=== PATIENT | male | born 1940 | race Caucasian/White ===

== ENCOUNTER 2022-05-15 19:31 | Observation (INO) | payer MEDICARE ==
[~2022-05-15] VITALS: Ht 167.6 cm; Wt 63.1 kg
[2022-05-15 19:54] LABS: BASO % 0.4 % (0.0-2.0); EOS # 0.1 K/mm3 (0.0-0.7); EOS % 1.2 % (0.0-4.0); GRAN # 3.9 K/mm3 (1.4-6.5); GRAN % 77.6 % (42.2-75.2); LYMPH # 0.3 K/mm3 (1.2-3.4); MEAN CELL VOLUME 97 fl (80.0-100.0); MEAN CORPUSCULAR HEMOGLOBIN 33 pg (27-31); MEAN CORPUSCULAR HGB CONC 34 g/dl (33.0-37.0); MEAN PLATELET VOLUME 8.5 fl (7.4-10.4); MONO # 0.8 K/mm3 (0.1-0.6); MONO % 15.2 % (1.7-9.3); PLATELET COUNT 184 K/mm3 (130-400); RED BLOOD COUNT 3.92 M/mm3 (4.20-5.60); REDCELL DISTRIBUTION WIDTH-CV 12.7 % (11.5-14.5)
[2022-05-15 20:14] LABS: ALBUMIN 3.1 gm/dL (3.4-4.8); BILIRUBIN,TOTAL 0.4 mg/dL (0.2-1.2); C-REACTIVE PROTEIN 0.54 mg/dL (0.00-0.50); CREATININE, serum 1.19 mg/dL (0.72-1.25); POTASSIUM 4.4 mmol/L (3.5-4.5); TOTAL PROTEIN 5.5 gm/dL (6.2-8.1)
[2022-05-15 21:03] LABS: COLLECTION METHOD CLEAN CATCH
[2022-05-15 21:10] LABS: MUCOUS Present (NOT PRESENT); PH 5 (5-8); SQUAMOUS EPITHELIAL 0-2 /hpf (0-10); URINE APPEARANCE Clear (CLEAR/HAZY); URINE BACTERIA None Seen /hpf (NONE SEEN); URINE BLOOD Negative (NEGATIVE); URINE COLOR Yellow (YELLOW); URINE GLUCOSE Negative (NEGATIVE); URINE KETONE Negative (NEGATIVE); URINE NITRATE Negative (NEGATIVE); URINE PROTEIN(semi-quant) Negative (NEGATIVE); URINE RBC 0-2 /hpf (0-2); URINE UROBILINOGEN Negative (NEGATIVE)
[2022-05-15] MEDS ORDERED: ELIQUIS 5MG PO (21:39)
[2022-05-15] MEDS ORDERED: PROSCAR 5MG5 MG PO (21:40)
[2022-05-15] MEDS ORDERED: TEGRETOL 2200 MG/TA1 PO (23:03)
[2022-05-15] MEDS ORDERED: NEURONTIN300 MG/CAP PO (23:03)
[2022-05-15] MEDS ORDERED: PROAMATINE 5MG T5 MG PO (23:03)
[2022-05-15] MEDS ORDERED: ULTRAM 50MG TAB50 MG PO (23:04)
[2022-05-15] MEDS ORDERED: SENNA-LAX8.6 MG PO (23:04)
[2022-05-16] VITALS (7 sets, daily range): BP systolic 113–139; BP diastolic 62–72; PULSE 60–86; TEMP 98.9–100.6
[2022-05-16 01:10] LABS: INR 1.4 (0.8-3.0); PROTHROMBIN TIME 16.4 SECONDS (9.7-12.8)
--- NOTE | 2022-05-16 05:30 | NUR ---
PT ARRIVED TO THE MEDICAL FLOOR AT 0115HRS TO ROOM 306. PT A&O X 3; VSS WITH SOME ELEVATED TEMPS; O2 RA. PT AT FIRST DENIED GENERAL PAIN, THEN ABOUT AN HOUR AND A HALF LATER, COMPLAINED OF HIP PAIN, WHICH HE SAYS CAME FROM THE X-RAY TECH HITTING HIS HIP BY MISTAKE, WITH THE CASSETTE WHEN IT WAS BEING PLACE UNDER HIS HIP. PT GIVEN ULTRAM AND TYLENOL FOR PAIN. PT ALSO HAD A LOW GRADE FEVER FOR WHICH THE TYLENOL WAS GIVEN WELL. PT DENIED CHEST PAIN, PALPITAIONS, SOB, N,V,D, OR DIZZINESS. PT ORIENTED TO ROOM AND HOSPITAL POLICY, BUT MAY NEED SOME RE-ENFORCEMENT DUE TO BEING VERY TIRED. ALL QUESTIONS AND CONCERNS ADDRESSED AT THIS TIME. CALL LIGHT WITHIN REACH.
[2022-05-16 06:26] LABS: BASO % 0.5 % (0.0-2.0); EOS % 0.5 % (0.0-4.0); GRAN # 2.7 K/mm3 (1.4-6.5); HEMOGLOBIN 11.9 g/dl (13.5-18.0); LYMPH # 0.3 K/mm3 (1.2-3.4); LYMPH % 7.5 % (20.0-51.0); MEAN CELL VOLUME 98 fl (80.0-100.0); MEAN CORPUSCULAR HEMOGLOBIN 33 pg (27-31); MEAN CORPUSCULAR HGB CONC 34 g/dl (33.0-37.0); MEAN PLATELET VOLUME 8.6 fl (7.4-10.4); MONO # 0.7 K/mm3 (0.1-0.6); PLATELET COUNT 171 K/mm3 (130-400); RED BLOOD COUNT 3.62 M/mm3 (4.20-5.60); REDCELL DISTRIBUTION WIDTH-CV 12.6 % (11.5-14.5)
[2022-05-16 06:37] LABS: HEMATOCRIT 35.4 % (42.0-52.0)
--- NOTE | 2022-05-16 08:03 | NUR ---
PT IS SLEEPING DURING THE BEDSIDE REPORT
--- NOTE | 2022-05-16 14:03 | NUR ---
Woodwork Teacher attempted to contact patient by room telephone; patient line not ringing/patient not answering. Patient is currently in isolation precautions. Woodwork Teacher attempted contact to patient sister, with whom patient resides, and left general voice message requesting call back. No patient identifiers shared this date on message. *Discharge plan pending intake and discharge needs*
--- NOTE | 2022-05-16 18:23 | NUR ---
pt had a calm day ,able to ambulate WITH A WALKER but needs a SBA, as urine urgency and frequency, ivf up and running.vs stable. alert and disoriented, unable to comprehend.
--- NOTE | 2022-05-16 20:30 | NUR ---
Initial shift assessment done- Pt alert/oriented to name /hospital. Drowsy. getting out of bed to stand at bedside to urinate- unable to use the position the urinal, urinated all over the floor x2 in the past 45 minutes, informed to call for assistance but does not seem to understand this very unsteady, bed alarm is on- tele on, IV fluids of NS at 100cc/hr.
[2022-05-17 03:43] VITALS: BP 105/67; PULSE 73; TEMP 99.7
--- NOTE | 2022-05-17 06:30 | NUR ---
Rough night , did not get much sleep due to needing to void very frequently,, did put on an external cathter and that did work well for a few hours and had to be replaced just once when the patient pulled it off- did get just a few hours of sleep overall, highest temp 100.8-tylenol was given, continues with IV fluids of NS at 100cc/hr.
[2022-05-17 06:57] LABS: HEMOGLOBIN 12.5 g/dl (13.5-18.0); MEAN CELL VOLUME 98 fl (80.0-100.0); MEAN CORPUSCULAR HEMOGLOBIN 32 pg (27-31); MEAN CORPUSCULAR HGB CONC 33 g/dl (33.0-37.0); MEAN PLATELET VOLUME 8.6 fl (7.4-10.4); PLATELET COUNT 147 K/mm3 (130-400); RED BLOOD COUNT 3.86 M/mm3 (4.20-5.60); REDCELL DISTRIBUTION WIDTH-CV 12.7 % (11.5-14.5)
[2022-05-17 07:46] LABS: BAND 15 % (0-10); BASOPHIL 2 % (0-2); METAMYELOCYTE 1 % (0-0); NEUTROPHILS 36 % (42.0-75.2)
[2022-05-17 07:47] LABS: HYPOCHROMIA 1+; LYMPHOCYTE 25 % (20.0-51.0); PLATELET ESTIMATE NORMAL (NORMAL)
[2022-05-17 08:43] VITALS: BP 131/73; PULSE 62; TEMP 98.3
--- NOTE | 2022-05-17 10:52 | NUR ---
The patient is COVID positive. SW contacted the patient's sister, Kierra Joshi (ph#[phone]), to discuss discharge plan. The patient lives in [place] with Kierra. The patient was living in [place]. Kierra moved the patient in with her a week ago. She reports that she helps the patient get in and out of the shower and that he has a cane, walker, and wheelchair. The patient's PCP is Dr. Dhruv Pérez and he receives his medications from [facility]. The patient's DPOA-HC is in his chart. It designates Belinda Jensen (ph#[phone]). The alternate is Kierra. SW inquired who Belinda is. Kierra reports that Belinda is the patient's DPOA-HC when he was in [place]. MARTHA informed her that if any major decisions would need to be made like withdrawal of care of status change, that we would still have to get in contact with Belinda. Kierra began to sound upset and frustrated over the phone. She states that Belinda is just some person in [place] and that she is his DPOA-HC while in [place]. SW informed her how we will still contact her and coordinate care with her. Kierra verbalized understanding and asks, "Well can I even make a decision on discharge plan or home health then?" SW informed her that she can. MARTHA discussed home health services. Kierra is open to home health. MARTHA informed her of some local home health agencies. Kierra stated, "whatever." She did not have a preference. MARTHA contacted and faxed a referral to Ally at [facility]. Awaiting screen. *Discharge plan: home with sister and home health*
[2022-05-17 11:02] VITALS: BP 120/65; PULSE 82; TEMP 98.8
--- NOTE | 2022-05-17 11:21 | NUR ---
Scheduled medications given. Shift assessment preformed. VSS. Patient alert, but only partially oriented. Gait noted to be weak. Remainder of neuro assessment WNL. Condom catheter in place. Patient c/o burning with urination. Patient denies any further pain, discomfort, SOA, or further needs at this time. Call light in reach. Fall precaution in place.
[2022-05-17 12:03] LABS: CALCIUM 7.9 mg/dL (8.4-10.2); CREATININE, serum 1.1 mg/dL (0.72-1.25)
[2022-05-17 15:53] VITALS: BP 127/74; PULSE 57; TEMP 99
[2022-05-17 17:14] LABS: COLLECTION METHOD CLEAN CATCH
[2022-05-17 17:33] LABS: MUCOUS Present (NOT PRESENT); PH 6 (5-8); SQUAMOUS EPITHELIAL None Seen /hpf (0-10); URINE APPEARANCE Clear (CLEAR/HAZY); URINE BACTERIA None Seen /hpf (NONE SEEN); URINE BLOOD 1+ (NEGATIVE); URINE COLOR Colorless (YELLOW); URINE GLUCOSE Negative (NEGATIVE); URINE KETONE Negative (NEGATIVE); URINE NITRATE Negative (NEGATIVE); URINE PROTEIN(semi-quant) Negative (NEGATIVE); URINE RBC 0-2 /hpf (0-2); URINE UROBILINOGEN Negative (NEGATIVE); URINE WBC None Seen /hpf (0-2)
--- NOTE | 2022-05-17 18:00 | NUR ---
Patient has had a rough day. Mental status declined and anxiety increased as shift progressed. Tre notified and orderes for zyprexa placed. UA collected and resulted. ABX started. VSS. Patient denies any pain, discomfort, SOA, or further needs a this time. Call light in reach. Fall precautions in place.
[2022-05-17 19:44] VITALS: BP 144/97; PULSE 103; TEMP 99.3
--- NOTE | 2022-05-17 20:00 | NUR ---
Initial shift assessment done- pt very, very confused, mumbling, talking about lakes/tractors/people taking his money- trying to get out of bed, peeing on the floor- with assistance did clean up pt and get back to bed, very fidgety, IV to R/AC still intact- wrapped with papo wrap at this time to try to keep it infusing, IV fluids of NS at 75cc/hr-- bed alarm on,, call light in reach
--- NOTE | 2022-05-17 21:35 | NUR ---
Called Joselin ZARATE about confusion that is worse than last night-- VSS, will get some ABG,s tonight and Head scan in the AM-
[2022-05-17 22:16] LABS: ARTERIAL BLD GAS TCO2 CT 21.1; ARTERIAL BLOOD GAS BASE EXCESS -1.9 (-2-2); ARTERIAL BLOOD GAS HCO3 20.3 meq/L (22-26); ARTERIAL BLOOD GAS PCO2 28.1 mmHg (35-45); ARTERIAL BLOOD GAS PO2 63.7 mmHg (80-100); ARTERIAL BLOOD GAS pH 7.48 (7.35-7.45)
[2022-05-17 23:30] VITALS: BP 107/45; PULSE 72; TEMP 99.8
[2022-05-18 02:58] VITALS: BP 1112/66; BP 112/66; PULSE 95; TEMP 97.8
--- NOTE | 2022-05-18 04:00 | NUR ---
Has been awake most of the night- VSS, remains very confused, hallucinating at times, seeing ants/mice/cats in room, picking at the air, trying to get out of bed on numerous occasions- did take a few steps around the bed with nurse- just very weak-- has been incontinent of urine numerous times,, did call Joselin ZARATE to see if we can give anything to calm him down-- order for haldol IV,, will give when approved by pharmacist. bed alarm on,
--- NOTE | 2022-05-18 05:00 | NUR ---
Haldol 2mg IV given, bed changed- all dry, warm blanket given,, pt seems to be resting, bed alarm on- checked often
[2022-05-18 06:16] LABS: HEMATOCRIT 39.5 % (42.0-52.0); HEMOGLOBIN 13.6 g/dl (13.5-18.0); MEAN CELL VOLUME 95 fl (80.0-100.0); MEAN CORPUSCULAR HEMOGLOBIN 33 pg (27-31); MEAN CORPUSCULAR HGB CONC 34 g/dl (33.0-37.0); MEAN PLATELET VOLUME 8.4 fl (7.4-10.4); PLATELET COUNT 136 K/mm3 (130-400); RED BLOOD COUNT 4.16 M/mm3 (4.20-5.60); REDCELL DISTRIBUTION WIDTH-CV 12.5 % (11.5-14.5)
[2022-05-18 07:03] LABS: BAND 7 % (0-10); EOSINOPHIL 2 % (0-4)
[2022-05-18 07:04] LABS: LYMPHOCYTE 21 % (20.0-51.0); NEUTROPHILS 54 % (42.0-75.2); PLATELET ESTIMATE NORMAL (NORMAL)
[2022-05-18 08:00] VITALS: BP 98/61; PULSE 79; TEMP 98.1
--- NOTE | 2022-05-18 10:55 | NUR ---
The hospitalist notified MARTHA that the patient should be ready to discharge tomorrow, 05/19. MARTHA attempted to contact and update the patient's sister, Kierra. MARTHA left her a voicemail.
[2022-05-18 12:00] VITALS: BP 84/49; PULSE 96
--- NOTE | 2022-05-18 13:16 | NUR ---
The patient's sister, Kierra, returned MARTHA's phone call. The RN had just provided Kierra with an update. Kierra reports that she is unsure if she will be able to take care of the patient in the condition that he is in now. She may be interested in SNF, if the patient does not improve. MARTHA informed her that her brother is observation status, so SNF would be private pay. Kierra verbalized understanding and states that they can private pay. She is interested in checking out [facility]. MARTHA contacted and faxed a referral to [facility], [facility], [place], [facility], and [facility]. Awaiting screens. *Discharge plan: SNF vs home with sister and home health*
[2022-05-18 13:30] VITALS: BP 120/84; PULSE 77
--- NOTE | 2022-05-18 14:30 | NUR ---
Bernabe, at [facility], reports that since the patient tested positive for COVID on 05/15, they would not be able to take the patient until 10 days out from that test date.
[2022-05-18 16:00] VITALS: BP 110/85; PULSE 83; TEMP 98.1
--- NOTE | 2022-05-18 20:00 | NUR ---
PATIENT IS ORIENTED TO PERSON BUT IS OTHERWISE PLEASANTLY CONFUSED. HX OF DEMENTIA WITH WORSENING CONFUSION SINCE HIS PASSING, REPORTED BY DAY SHIFT. VSS ON TELE. NO C/O SOB. O2 SATS IN MID 90'S ON RA. NOTED OCCATIONAL COUGH. PATIENT HAD DIFFICULT TIME TAKING PILLS. PATIENT SEEMED UNABLE TO SWALLOW THEM EVEN WITH LOTS OF WATER. DAY SHIFT REPORTED PATIENT IS ABLE TO TAKE PILLS WHOLE HOWEVER NURSING ENDED UP GAVE PILLS IN APPLESAUCE. MECH SOFT DIET. NO C/O N/V. IV FLUIDS INFUSING VIA PUMP INTO RIGHT UPPER ARM IV. RIGHT AC IV TO INT. HEAD TO TOE ASSESSMENT COMPLETE, SEE CHARTING. PATIENT ATTEMPTED TO USE URINAL AND SPILLED URINE, BED CHANGE. VERY WEAK, UNSTEAD GAIT. PT/OT CONSULTED. COVID ISOLATION PRCAUTIONS INPLACE. DNR STATUS. NO OTHER NEEDS AT THIS TIME. CALL LIGHT IN REACH. BED ALARM ON. HIGH FALL RISK.
[2022-05-18 20:11] VITALS: BP 101/58; PULSE 82; TEMP 98.4
[2022-05-19] VITALS (7 sets, daily range): BP systolic 78–134; BP diastolic 46–99; PULSE 57–95; TEMP 98.1–98.7
--- NOTE | 2022-05-19 02:05 | NUR ---
PATIENT IS CONSTANTLY TRYING TO GET OUT OF BED. VERY CONFUSED. NURSING ATTEMPTED TO RE-ORIENT HIM AGAIN. NOW DOSE OF IM ZYPREXA GIVEN PER ORDERS. ORAL ZYPREXA DID NOT SEEM TO HAVE ANY EFFECT. WILL MONITOR.
--- NOTE | 2022-05-19 02:33 | NUR ---
PATIENT CONTINUES TO TRY AND GET OUT OF BED, SETTING OFF BED ALARM. PATIENT FREQUENTLY REQUIRING REDIRECTION. MOST OF THE TIME HE DOES NOT KNOW WHAT HE WANTS OR NEEDS. PATIENT DOESN'T APPEAR TO BE IN DISCOMFORT, JUST INCREASINGLY CONFUSED THROUGH OUT THE NIGHT.
--- NOTE | 2022-05-19 03:06 | NUR ---
PATIENT STILL INCREASINGLY AGGITATED FOR UNKNOWN REASONS WHICH APPEAR TO BE WORSE AT NIGHT THAN DURING THE DAY. PATIENT HAS NOT SLEPT AT ALL, CONSTANTLY TALKING AND MOVING AROUND IN BED. PATIENT HAS BEEN TRYING TO GET OUT OF BED AND PULLING AT IV LINES/CORDS/TELE ALL SHIFT. CALLED HOSPITALIST, SEE NEW ORDERS. GAVE PRN IV HALDOL.
[2022-05-19 06:40] LABS: BASO % 0.4 % (0.0-2.0); EOS # 0.1 K/mm3 (0.0-0.7); EOS % 3.1 % (0.0-4.0); GRAN # 1.2 K/mm3 (1.4-6.5); HEMATOCRIT 39.9 % (42.0-52.0); HEMOGLOBIN 13.4 g/dl (13.5-18.0); LYMPH # 0.6 K/mm3 (1.2-3.4); LYMPH % 27.6 % (20.0-51.0); MEAN CELL VOLUME 97 fl (80.0-100.0); MEAN CORPUSCULAR HEMOGLOBIN 33 pg (27-31); MEAN CORPUSCULAR HGB CONC 34 g/dl (33.0-37.0); MEAN PLATELET VOLUME 8.8 fl (7.4-10.4); MONO # 0.3 K/mm3 (0.1-0.6); MONO % 14.9 % (1.7-9.3); PLATELET COUNT 142 K/mm3 (130-400); REDCELL DISTRIBUTION WIDTH-CV 12.4 % (11.5-14.5)
--- NOTE | 2022-05-19 10:49 | NUR ---
Lily, at [facility], reports that they are looking at accepting the patient. She plans to get back to this SW to confirm. She states that they would not be able to take the patient until 10 days out from his COVID positive test as well though.
--- NOTE | 2022-05-19 12:00 | NUR ---
Patient sleeping heavily during assessment. In handoff report, was informed patient needed sedation to settle into bed overnight and did not fall asleep until 0530. Patient open mouth snoring. Lung bases course. Unable to assess neuro function. When attempt to wake, patient swats at staff. Patient did not wake for breakfast and is currently very lethargic. Author not comfortable with attempting po medications at this time. Will attempt when patient more alert.
--- NOTE | 2022-05-19 14:51 | NUR ---
The patient is not responsive to questions or commands today. The hospitalist notes that he is delirious and moaning. A palliative care consult was ordered. MARTHA contacted Angella at [facility] to inquire when they can take COVID positive patients. Angella reports that she believes that they can take five days out from their positive test. She provides that they have received quite a bit of referrals and that if the family is interested in the hospice house, it would not be until mid next week that they could look at taking. Lizeth, at [facility], contacted MARTHA for an update on the patient. Lizeth states that they do have active COVID in their building, so she does not believe they would have to wait the 10 days.
--- NOTE | 2022-05-19 14:51 | NUR ---
Call made to patient's sister, Kierra. She is still upset that she is not the primary decision maker for her brother and states that his children didn't want to take care of him so she has been back and forth 4 times helping him with various things and doesn't feel that the friend in [place] should be the decision maker since she is so far away. Discussed patient status and if patient and Kierra ever discussed his wishes about how aggressive to be with healthcare. Kierra states the patient has a living will be that is all she knows. Call also made to patients primary DPOA-HC, Belinda; left voicemail.
--- NOTE | 2022-05-19 16:38 | NUR ---
Received call from patient's DPOA Ingrid. She very much wants to be involved in decisions for the patient's care and placement. Call her with any change or updates at #[phone]. Updated SW and care team. Started discussions about hospice or LTC placement if patient doesn't meet SNF requirements or mental status continues to decline. Current plan is to update Ingrid tomorrow and continue conversations.
--- NOTE | 2022-05-19 18:31 | NUR ---
Patient has slept most of the day. Did get out of bed at one point today and had a fall to the knees, caught by PCT. No injury noted. Patient sat in chair and ate lunch independently. When patient was aided back to bed, patient slept the rest of shift. Patient is very disoriented when awake. Morning dose meds not given due to extreme lethargy. Palliative consult placed. Neuro checks canclled. Patient JESSICA is Ingrid in [place], she is very active in his care and is the person to make ALL medical decisions. Kierra is his sister who is local, she is to get updates only. Current plan is to see how the patient does overnight, and then reevaluate for placement with or without Hospice tomorrow. With patient Covid + status placement may be delayed full 10 days isolation. Social work involved. Fall precautions in place.
[2022-05-20] VITALS (7 sets, daily range): BP systolic 82–112; BP diastolic 53–75; PULSE 53–72; TEMP 97.3–98.5
--- NOTE | 2022-05-20 05:15 | NUR ---
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 PT RESTLESS IN BED, STATING HE HAD TO USE THE URINAL. PT ASSESSED WITH THE URINAL. PT THEN STATED HE WAS HUNGRY. I BROUGHT IN PT'S FOOD. PT ATE 90% OF HIS FOOD. PT DENIED PAIN, PALPITATIONS, SOB, N,V,D OR DIZZINESS. PT CONTINUES WITH SOME CONFUSION. AROUND 0100HRS. PT WANTED COFFEE AND TO TAKE A WALK. I EXPLAINED TO PT THAT IT WAS NIGHT TIME AND THAT HE NEEDED HIS REST. PT AGREED. PT HAD TWO EPISODES OF TRYING TO BED JUMP. WILL CONTINUE TO MONITOR. PT EXPRESSED NO ADDITIONAL NEEDS AT THIS TIME. CALL LIGHT WITHIN REACH.
[2022-05-20 07:05] LABS: BASO % 0.4 % (0.0-2.0); EOS # 0.2 K/mm3 (0.0-0.7); EOS % 8.2 % (0.0-4.0); GRAN % 43.6 % (42.2-75.2); HEMOGLOBIN 12.6 g/dl (13.5-18.0); LYMPH # 0.8 K/mm3 (1.2-3.4); LYMPH % 34.9 % (20.0-51.0); MEAN CELL VOLUME 97 fl (80.0-100.0); MEAN CORPUSCULAR HEMOGLOBIN 33 pg (27-31); MEAN CORPUSCULAR HGB CONC 34 g/dl (33.0-37.0); MEAN PLATELET VOLUME 8.8 fl (7.4-10.4); MONO # 0.3 K/mm3 (0.1-0.6); MONO % 12.9 % (1.7-9.3); PLATELET COUNT 134 K/mm3 (130-400); RED BLOOD COUNT 3.82 M/mm3 (4.20-5.60); REDCELL DISTRIBUTION WIDTH-CV 12.7 % (11.5-14.5)
[2022-05-20 07:08] LABS: HEMATOCRIT 36.9 % (42.0-52.0)
--- NOTE | 2022-05-20 08:50 | NUR ---
Patient alert to self and date of . Patient believes he is in convalecent home in [place]. Currently only trying to get out of bed when needing to urinate. Was accepting and seemed to understand external catheter placement to help with moisture and urination. IV lines in right arm, both inflitrated, removed. Will replace with new. No noticable skin break down. Full bed change, gown and bath during assessment. Patient calm, sleeping afterwards. Fall precautions in place, call [place] in reach.
--- NOTE | 2022-05-20 08:53 | NUR ---
Received call from patient's sister, Kierra. She requested to bring the patient home [place] and that she is looking into home health and private duty nursing to assist her. Offered to have SW reach out to discuss options. Call placed to patient's DPOA, Ingrid. She is very concerned that the patient and his sister will not do well in a home setting, even if some help is found. Ingrid states she talks with Kierra often and that so far she has not been told that anything is set up. Ingrid is still interested in placement for Srinivasa to ensure he is safe and well cared for. SW updated about conversations. Both Kierra and Ingrid would appreciate updates about patient status and pending placement options.
--- NOTE | 2022-05-20 15:00 | NUR ---
Lila, palliative care RN, notified MARTHA that the patient's DPOA-HC, Belinda, returned her call. Belinda very much wants to be involved. She was the patient's 's best friend. She is also the patient's financial DPOA. Belinda has been calling the hospital everyday and getting updates from the RN. Lila states that she also talked to the patient's sister, Kierra, and she is wanting to take the patient home now with home health and private duty services. MARTHA contacted the patient's sister, Kierra, to review discharge plan. MARTHA informed Kierra how the patient is only walking 20 ft and PT is reporting that he is very confused and needs constant cues. Kierra verbalized understanding and states that she would still like to pursue with the patient coming home with her and hiring a private duty caregiver for overnights and home health. She states that she contacted the health dept to get a list of private duty agencies and plans to contact them. She would like to get this set up first, before bringing him home. MARTHA informed her that staffing for overnights can take a while to get set up and the doctor will be ready to discharge the patient soon. Kierra verbalized understanding. She states that her daughter plans to stay with her over the weekend and help her with the patient. She would like to pursue with [facility] for home health. MARTHA updated Lance at [facility]. Lance reports that they are still able to accept the patient and she will reach out to their private duty side and have them contact the sister. MARTHA contacted the patient's DPOA-HC, Belinda, to review discharge plan. Belinda reports that she does have concerns with Kierra taking the patient home, but she is going to support her this time. Belinda states that she will be flying to [place] next Tuesday to assist the patient and Kierra. MARTHA staffed with the hospitalist. The hospitalist is looking at discharge tomorrow. MARTHA notified Kierra. *Discharge plan: home with sister and home health and private duty caregivers*
--- NOTE | 2022-05-20 17:26 | NUR ---
No change in patient status. External catheter placed, no complaints and working well to manage moisture and patient impulsiveness. Patient feeds self, needs set up in chair or bed. No IV fluids or antibiotics needed, provider cancelled. Provider permission to not start new IV int. Discharge plan for patient to Discharge home with sister tomorrow. All fall precuations in place.
[2022-05-21 03:25] VITALS: BP 103/68; PULSE 67; TEMP 97.7
--- NOTE | 2022-05-21 05:15 | NUR ---
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 PT HAS A PRETTY ROUGH BARKING COUGH. HOSPITALIST CALLED. ROBITUSSIN ORDERED AND GIVEN (PT ABLE TO GET DOWN MOST OF IT DOWN). PT SLEPT MOST OF SHIFT. WILL CONTINUE TO MONITOR. CALL LIGHT WITHIN REACH.
[2022-05-21 06:59] LABS: BASO % 0.7 % (0.0-2.0); EOS # 0.2 K/mm3 (0.0-0.7); EOS % 5.3 % (0.0-4.0); GRAN # 1.4 K/mm3 (1.4-6.5); GRAN % 48.4 % (42.2-75.2); LYMPH # 0.9 K/mm3 (1.2-3.4); LYMPH % 33.1 % (20.0-51.0); MEAN CELL VOLUME 98 fl (80.0-100.0); MEAN CORPUSCULAR HEMOGLOBIN 33 pg (27-31); MEAN CORPUSCULAR HGB CONC 33 g/dl (33.0-37.0); MEAN PLATELET VOLUME 8.9 fl (7.4-10.4); MONO # 0.3 K/mm3 (0.1-0.6); MONO % 12.1 % (1.7-9.3); PLATELET COUNT 131 K/mm3 (130-400); RED BLOOD COUNT 3.97 M/mm3 (4.20-5.60); REDCELL DISTRIBUTION WIDTH-CV 12.6 % (11.5-14.5)
[2022-05-21 07:19] LABS: CALCIUM 8.2 mg/dL (8.4-10.2); CREATININE, serum 1.06 mg/dL (0.72-1.25); POTASSIUM 3.9 mmol/L (3.5-4.5)
[2022-05-21 07:48] VITALS: BP 150/59; PULSE 75; TEMP 97.9
[2022-05-21 11:37] VITALS: BP 92/58; PULSE 90; TEMP 97.9
[2022-05-21 15:43] VITALS: BP 91/66; PULSE 83; TEMP 98.4
--- NOTE | 2022-05-21 16:31 | NUR ---
Lizeth, at [facility], left SW a voicemail to follow up on families decision for SNF/hospice. Bridget, at [facility], reports that they have declined the patient; due to not having a special care bed. She states that we can continue to send updates and they can reassess the patient, if his status changes. The hospitalist notified SW that the patient's sister is now wanting to pursue SNF again. SW contacted the patient's sister, Kierra. Kierra states that the doctor reviewed therapies notes with her again and she has decided she cannot take him home in the condition he is in. This SW reviewed therapy's notes with her yesterday. SW informed her how we can look at this option again and how it would be private pay, due to him being observation status. Kierra expressed her frustrations with him being observation status. She states that the patient is able to private pay at a facility. SW updated her about [facility] and [facility]. Kierra states that she does not want the patient going to [facility] and if [facility] is unable to accept, then she will take the patient home. MARTHA contacted and faxed updates, along with the patient's DPOA-HC to Bernabe at [facility]. MARTHA requested an answer today on if able to accept. [facility] is still reviewing the referral. MARTHA attempted contact the patient's DPOA-HC, Belinda, to update on the sister's decision and discharge plan. MARTHA left her a voicemail.
--- NOTE | 2022-05-21 18:03 | NUR ---
pt had a calm day, vss, orient and alert x4, due medication given as prescribed all swallowed, no adverse reaction noted.pt awaiting placement to a half-way facility, social workerand relatives aware.
[2022-05-21 20:01] VITALS: BP 100/72; PULSE 76; TEMP 98.9
[2022-05-21 23:59] VITALS: BP 102/64; PULSE 72; TEMP 97.6
[2022-05-22 04:04] VITALS: BP 93/63; PULSE 78; TEMP 98.2
--- NOTE | 2022-05-22 06:15 | NUR ---
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 PT SLEPT MOST OF THE NIGHT. PT SEEMS TO HAVE MORE OF A GAUNT APPEARANCE NOW. WILL PASS ON TO DAYSHIFT RN TO ENCOURAGE FOOD INTAKE, POSSIBLE SUPPLEMENTS (I.E. SHAKES, ETC) AND TO ALSO SPEAK WITH PHYSICIAN DURING ROUNDS. WILL CONTINUE TO MONITOR. CALL LIGHT WITHIN REACH.
[2022-05-22 07:06] LABS: BASO % 0.6 % (0.0-2.0); EOS # 0.2 K/mm3 (0.0-0.7); EOS % 5.8 % (0.0-4.0); GRAN # 1.5 K/mm3 (1.4-6.5); GRAN % 48.2 % (42.2-75.2); HEMATOCRIT 40.4 % (42.0-52.0); HEMOGLOBIN 13.7 g/dl (13.5-18.0); LYMPH % 30.7 % (20.0-51.0); MEAN CELL VOLUME 96 fl (80.0-100.0); MEAN CORPUSCULAR HEMOGLOBIN 33 pg (27-31); MEAN CORPUSCULAR HGB CONC 34 g/dl (33.0-37.0); MEAN PLATELET VOLUME 9.3 fl (7.4-10.4); MONO # 0.4 K/mm3 (0.1-0.6); MONO % 14.1 % (1.7-9.3); PLATELET COUNT 137 K/mm3 (130-400); RED BLOOD COUNT 4.21 M/mm3 (4.20-5.60); REDCELL DISTRIBUTION WIDTH-CV 12.8 % (11.5-14.5)
[2022-05-22 07:23] LABS: CALCIUM 8.5 mg/dL (8.4-10.2); CREATININE, serum 1.1 mg/dL (0.72-1.25)
[2022-05-22 08:36] VITALS: BP 110/70; PULSE 120; TEMP 98
--- NOTE | 2022-05-22 09:21 | NUR ---
Burial Vault Deliverer And Installer received telephone contact from patient [facility] Belinda ([phone]) requesting follow up on patient plan of care. Burial Vault Deliverer And Installer reviewed patient chart, noting patient sister declined to take patient home with home health services, expressing concern for ability to care for him. Placement to [facility] declined, as the facility does not have a special bed for him at this time. They are willing to review updates and re-assess if a bed is available. A referral to [facility] is pending review; if he is accepted for placement it would not be until Tuesday, 05/25. Burial Vault Deliverer And Installer contacted [facility] and [facility] to inquire about patient referral. Burial Vault Deliverer And Installer faxed clinical updates to both [facility] and [facility]. Burial Vault Deliverer And Installer contacted patient [facility] Belinda to update; Belinda expressed gratitude for updated plan of care and supports. She has questions about private pay hospital stay vs. Medicare coverage while awaiting placement. Burial Vault Deliverer And Installer notes patient chart indicates continued observation status, but recommends Belinda speak to RN CM and/or patient financial coordinator on Tuesday to further resolve her financial/billing inquires. She is willing to do so, and has no further quesitons concerns at this time. She will update patient sisterKierra. *Discharge plan pending [facility] and/or [facility] acceptance*
--- NOTE | 2022-05-22 09:58 | NUR ---
Rigger Apprentice received telephone contact from Lotus at [facility], who plans to follow up with clinical updates and patient DPOA-HC and family. May be able to accept patient today. Rigger Apprentice awaiting notification of patient placement acceptance at [facility]. Rigger Apprentice updates Lamont [facility].
--- NOTE | 2022-05-22 11:11 | NUR ---
Chili Pepper Grinder received telephone contact from Antione Davis at [facility] who states they are following patient care and the earliest they could accept would be 05/26.
[2022-05-22 12:15] VITALS: BP 107/64; PULSE 74; TEMP 97.4
--- NOTE | 2022-05-22 12:35 | NUR ---
Social Work receives request from Lotus at [facility] to confirm patient is Covid + Day 7. Lamont RN confirms. Per Lotus at [facility], patient is accepted for admission. MARTHA updates Lamont RN, who will notify physician and request discharge orders. Social Media Intern awaiting transportation ETA from [facility].
[2022-05-22] MEDS ORDERED: DESYREL 50MG50 MG PO (12:48)
--- NOTE | 2022-05-22 14:00 | NUR ---
Tool Hardener attempted contact to [facility], left requesting call back to update on plan of care. Tool Hardener contacted patient sister Kierra and updated. Kierra is in support of plan of care, but expressed frustration that Belinda in [place] is patient [facility] and this decision was made 30 years ago and she is next-of-kin. She verbalizes understanding of education offered and will talk to [facility] on Tuesday this week to request the appointment turned over to her. She verbalizes understanding she may or may not need legal guidance. She inquires about patient observation and private pay status, and she verbalizes understanding of inpatient hospitalization vs. observation. She is referred to Medicare and/or [facility] for further information regarding observation status guidelines and patient treatment course. She expresses no other questions or concerns at this time. She expresses gratitude, and she plans to visit patient at [facility] tomorrow. Tool Hardener received return contact from Belinda, patient [facility], who is updated. She verbalizes gratitude for services and accepts telephone contact for [facility] for intake and paperwork completion there. She has no further questions or concerns.
--- NOTE | 2022-05-22 15:05 | NUR ---
PT HAD A CALM DAY, VSS, ORIENT AND ALERT X4, DUE MEDS GIVEN NO ADVERSE REACTION NOTED. PT DISCHARGED FROM THE UNIT TO [facility].DISCHARGE SUMMARY HANDED OVER TO THE [facility] TRANSPORTING STAFF. WAS UNABLE TO REACH THE RN AT [facility] IN ORDER TO GIVE THE PT REPORT. [facility] CALLED MULTIPLE TIME AND VOICE MESSAGE LEFT WITH NO RESPONDS.I WILL CONTINUE TO CALL. PT ESCORTED OUT OF THE UNIT IN A WHEEL CHAIR IN COMPANY OF [facility] STAFF.
--- NOTE | 2022-05-22 16:34 | NUR ---
PT REPORT CALLED IN TO PORTER ALMONTE AT [facility]
== END 2022-05-22 14:30 ==
LOC: COL.ER 19:31 → MEDICAL 22:20
PROVIDERS: Family Medicine; Internal Medicine; Nurse Practitioner Family; Student in an Organized Health Care Education/Training Program; ADMIT Student in an Organized Health Care Education/Training Program
DX: U07.1 COVID-19 (principal); Z86.711 Personal history of pulmonary embolism; I95.89 Other hypotension; Z85.038 Personal history of other malignant neoplasm of large intestine; Z90.49 Acquired absence of other specified parts of digestive tract; G50.0 Trigeminal neuralgia; F32.A Depression, unspecified; K59.00 Constipation, unspecified; Z79.01 Long term (current) use of anticoagulants; Z79.899 Other long term (current) drug therapy
CPT/HCPCS: G0378; J0696; J1630; J7030; Q9967

== ENCOUNTER 2022-07-30 11:00 | Outpatient (RCR) | payer MEDICARE ==
[~2022-07-30 11:00] MED LIST: DESYREL 50MG50 MG PO; ELIQUIS 5MG PO; NEURONTIN300 MG/CAP PO; PROAMATINE 5MG T5 MG PO; PROSCAR 5MG5 MG PO; SENNA-LAX8.6 MG PO; TEGRETOL 2200 MG/TA1 PO; ULTRAM 50MG TAB50 MG PO
== END 2022-08-16 | disposition home or self-care (01) ==
LOC: PT.GENESIS
DX: R26.9 Unspecified abnormalities of gait and mobility (principal)

== ENCOUNTER 2022-11-09 12:04 | Emergency (ER) | payer MEDICARE ==
[~2022-11-09] VITALS: Ht 167.6 cm; Wt 71.8 kg
[2022-11-09 12:07] VITALS: TEMP 97.8
[2022-11-09 12:40] LABS: BASO % 0.6 % (0.0-2.0); EOS # 0.2 K/mm3 (0.0-0.7); EOS % 2.9 % (0.0-4.0); HEMATOCRIT 40.4 % (42.0-52.0); HEMOGLOBIN 13.9 g/dl (13.5-18.0); LYMPH # 1.1 K/mm3 (1.2-3.4); LYMPH % 17.3 % (20.0-51.0); MEAN CELL VOLUME 94 fl (80.0-100.0); MEAN CORPUSCULAR HEMOGLOBIN 33 pg (27-31); MEAN CORPUSCULAR HGB CONC 34 g/dl (33.0-37.0); MEAN PLATELET VOLUME 8.3 fl (7.4-10.4); MONO # 0.9 K/mm3 (0.1-0.6); MONO % 13.9 % (1.7-9.3); PLATELET COUNT 221 K/mm3 (130-400); RED BLOOD COUNT 4.28 M/mm3 (4.20-5.60)
[2022-11-09 13:01] LABS: ALANINE AMINOTRANSFERASE 12 U/L (0-55); ALBUMIN 3.6 gm/dL (3.4-4.8); ALKALINE PHOSPHATASE 87 U/L (40-150); ANION GAP 10 mmol/L (7-16); AST,SGOT 12 U/L (5-34); BILIRUBIN,TOTAL 0.7 mg/dL (0.2-1.2); BLOOD UREA NITROGEN 18 mg/dL (8-26); CALCIUM 9.3 mg/dL (8.4-10.2); CARBON DIOXIDE 22 mmol/L (23-31); CHLORIDE 104 mmol/L (98-107); CREATININE, serum 1.45 mg/dL (0.72-1.25); GLUCOSE 107 mg/dL (70-99); LIPASE 22 U/L (8-78); POTASSIUM 3.9 mmol/L (3.5-4.5); SODIUM 136 mmol/L (136-145); TOTAL PROTEIN 6.5 gm/dL (6.2-8.1)
[2022-11-09 13:21] LABS: TSH w REFLEX 1.271 uIU/mL (0.350-4.940)
[2022-11-09 13:22] LABS: TROPONIN-I < 0.010 ng/mL (0.00-0.033)
[2022-11-09 13:45] LABS: COLLECTION METHOD CLEAN CATCH
[2022-11-09 13:54] LABS: URINE APPEARANCE Cloudy (CLEAR/HAZY); URINE COLOR Yellow (YELLOW); URINE GLUCOSE Negative (NEGATIVE); URINE KETONE Negative (NEGATIVE); URINE NITRATE Negative (NEGATIVE); URINE PROTEIN(semi-quant) TRACE (NEGATIVE)
[2022-11-09 13:55] LABS: URINE BLOOD 3+ (NEGATIVE)
[2022-11-09 14:16] LABS: MUCOUS Present (NOT PRESENT); SQUAMOUS EPITHELIAL None Seen /hpf (0-10); URINE BACTERIA None Seen /hpf (NONE SEEN); URINE RBC >50 /hpf (0-2)
[2022-11-09 14:27] VITALS: BP 124/96; PULSE 75
== END 2022-11-09 14:27 | disposition home or self-care (01) ==
LOC: COL.ER 12:04
PROVIDERS: Emergency Medicine
DX: N17.9 Acute kidney failure, unspecified (principal); Z20.822 Contact with and (suspected) exposure to COVID-19
CPT/HCPCS: J7120

== ENCOUNTER 2022-12-08 13:00 | Outpatient (RCR) | payer MEDICARE | END 2022-12-14 | disposition home or self-care (01) | LOC: PT.GENESIS | DX: G20 Parkinson's disease (principal) ==

== ENCOUNTER 2023-01-07 13:00 | Outpatient (RCR) | payer MEDICARE | END 2023-01-14 | disposition home or self-care (01) | LOC: PT.GENESIS | DX: G20 Parkinson's disease (principal) ==

== ENCOUNTER 2023-02-07 10:30 | Outpatient (RCR) | payer MEDICARE | END 2023-02-13 | disposition home or self-care (01) | LOC: PT.GENESIS | DX: G20 Parkinson's disease (principal) ==

== ENCOUNTER 2023-02-23 11:02 | Emergency (ER) | payer MEDICARE ==
[~2023-02-23] VITALS: Ht 167.6 cm; Wt 72.7 kg
[2023-02-23 11:07] VITALS: TEMP 98.6
[2023-02-23 12:53] VITALS: BP 117/78; PULSE 69
== END 2023-02-23 12:54 | disposition home or self-care (01) ==
LOC: COL.ER 11:02
DX: S06.0X0A Concussion without loss of consciousness, initial encounter (principal); I48.91 Unspecified atrial fibrillation; Z79.01 Long term (current) use of anticoagulants; Z86.69 Personal history of other diseases of the nervous system and sense organs; Z28.311 Partially vaccinated for COVID-19; W18.30XA Fall on same level, unspecified, initial encounter; W22.8XXA Striking against or struck by other objects, initial encounter

== ENCOUNTER 2023-06-09 11:00 | Outpatient (RCR) | payer MEDICARE ==
[~2023-06-09 11:00] MED LIST changes: +LYVISPAH5 MG PO
[2023-06-14] MEDS ORDERED: HALDOL 2MG T2 MG/TAB PO (22:18)
== END 2023-06-16 | disposition home or self-care (01) ==
LOC: PT.GENESIS
DX: G20 Parkinson's disease (principal)

== ENCOUNTER 2023-08-07 18:27 | Emergency (ER) | payer MEDICARE ==
[~2023-08-07] VITALS: Ht 167.6 cm; Wt 72.7 kg
[~2023-08-07 18:27] MED LIST changes: +HALDOL 2MG T2 MG/TAB PO
[2023-08-07] MEDS ORDERED: TEGRETOL 2200 MG/TA1 PO (18:34)
[2023-08-07] MEDS ORDERED: PROZAC 20MG20 MG PO (18:35)
[2023-08-07] MEDS ORDERED: PROAMATINE10 MG PO (18:35)
[2023-08-07] MEDS ORDERED: SINEMET 25/101 UDTAB PO (18:35)
[2023-08-07] MEDS ORDERED: PROTONIX 40MG T40 MG PO (18:36)
[2023-08-07] MEDS ORDERED: SINEMET CR 50 M1 TER PO (18:36)
[2023-08-07 18:38] VITALS: TEMP 98.3
[2023-08-07 18:51] LABS: BASO % 0.5 % (0.0-2.0); EOS # 0.3 K/mm3 (0.0-0.7); EOS % 3.3 % (0.0-4.0); GRAN # 5.3 K/mm3 (1.4-6.5); HEMOGLOBIN 11.9 g/dl (13.5-18.0); LYMPH # 0.8 K/mm3 (1.2-3.4); LYMPH % 10.4 % (20.0-51.0); MEAN CELL VOLUME 99 fl (80.0-100.0); MEAN CORPUSCULAR HEMOGLOBIN 33 pg (27-31); MEAN CORPUSCULAR HGB CONC 33 g/dl (33.0-37.0); MEAN PLATELET VOLUME 9.5 fl (7.4-10.4); MONO % 13.9 % (1.7-9.3); PLATELET COUNT 171 K/mm3 (130-400); RED BLOOD COUNT 3.64 M/mm3 (4.20-5.60)
[2023-08-07 18:53] LABS: HEMATOCRIT 35.9 % (42.0-52.0)
[2023-08-07 19:55] LABS: ALANINE AMINOTRANSFERASE 6 U/L (0-55); ALBUMIN 3.4 gm/dL (3.4-4.8); ALKALINE PHOSPHATASE 66 U/L (40-150); ANION GAP 8 mmol/L (7-16); AST,SGOT 15 U/L (5-34); BILIRUBIN,TOTAL 0.6 mg/dL (0.2-1.2); BLOOD UREA NITROGEN 32 mg/dL (8-26); CALCIUM 8.8 mg/dL (8.4-10.2); CARBON DIOXIDE 22 mmol/L (23-31); CHLORIDE 108 mmol/L (98-107); CREATINE KINASE 119 U/L (30-200); CREATININE, serum 1.41 mg/dL (0.72-1.25); GLUCOSE 133 mg/dL (70-99); SODIUM 138 mmol/L (136-145); TOTAL PROTEIN 6.2 gm/dL (6.2-8.1)
[2023-08-07 20:16] LABS: TSH w REFLEX 0.847 uIU/mL (0.350-4.940)
[2023-08-07 20:19] LABS: TROPONIN-I < 0.010 ng/mL (0.00-0.033)
[2023-08-07 22:57] VITALS: BP 154/70; PULSE 76
== END 2023-08-07 22:58 | disposition short-term general hospital (02) ==
LOC: COL.ER 18:27
PROVIDERS: Emergency Medicine
DX: S06.30AA Unspecified focal traumatic brain injury with loss of consciousness status unknown, initial encounter (principal); S06.5XAA Traumatic subdural hemorrhage with loss of consciousness status unknown, initial encounter; I26.99 Other pulmonary embolism without acute cor pulmonale; R94.4 Abnormal results of kidney function studies; Z79.01 Long term (current) use of anticoagulants; W19.XXXA Unspecified fall, initial encounter
CPT/HCPCS: J1953; J7120